=== PATIENT | male | born 1970 | race Caucasian/White ===

== ENCOUNTER 2016-10-05 08:25 | Emergency (ER) | payer MEDICAID ==
[~2016-10-05] VITALS: Ht 180.3 cm; Wt 111.5 kg
[2016-10-05] MEDS ORDERED: IBUPROFEN 600 MG TABLET PO ONE (09:30)
[2016-10-05] MEDS ORDERED: HYDROCODONE/ACETAMINOPHEN 5-325 MG TABLET PO ONE (09:30)
[2016-10-05 10:45] VITALS: BP 135/85
== END 2016-10-05 10:58 | disposition home or self-care (01) ==
LOC: EMS 08:29
DX: M54.5 Low back pain (principal); G89.29 Other chronic pain; F17.210 Nicotine dependence, cigarettes, uncomplicated
CPT/HCPCS: 99283

== ENCOUNTER 2016-10-14 08:57 | Emergency (ER) | payer MEDICAID ==
[~2016-10-14] VITALS: Ht 167.6 cm; Wt 111.8 kg
[2016-10-14] MEDS ORDERED: HYDR-309 PO (08:59)
[2016-10-14] MEDS ORDERED: IBUP-1547 PO (08:59)
[2016-10-14] MEDS ORDERED: HYDROCODONE/ACETAMINOPHEN 10-325 MG TABLET PO ONE (11:15)
[2016-10-14] MEDS ORDERED: KETOROLAC TROMETHAMINE 60 MG/2 ML VIAL IM ONE (11:15)
[2016-10-14 13:33] VITALS: BP 137/83
== END 2016-10-14 13:34 | disposition home or self-care (01) ==
LOC: EMS 08:58
DX: Z76.0 Encounter for issue of repeat prescription (principal); M54.5 Low back pain; M62.830 Muscle spasm of back; G89.29 Other chronic pain; F17.210 Nicotine dependence, cigarettes, uncomplicated
CPT/HCPCS: 96372; 99283; J1885